=== PATIENT | female | born 1985 | race Two or more races ===

== ENCOUNTER 2018-04-14 17:51 | Observation (INO) | payer MEDICAID ==
[~2018-04-14] VITALS: Ht 165.1 cm; Wt 61.2 kg
[2018-04-14] MEDS ORDERED: PREN1TAB87 PO (17:57)
== END 2018-04-14 18:45 | disposition home or self-care (01) ==
LOC: L&D 17:51
PROVIDERS: ADMIT Obstetrics & Gynecology; ATTEND Obstetrics & Gynecology
DX: O26.893 Other specified pregnancy related conditions, third trimester (principal); Z3A.32 32 weeks gestation of pregnancy; V49.9XXA Car occupant (driver) (passenger) injured in unspecified traffic accident, initial encounter; Y93.89 Activity, other specified; Y92.89 Other specified places as the place of occurrence of the external cause; Y99.8 Other external cause status
CPT/HCPCS: 99281; G0378